=== PATIENT | female | born 1990 | race Caucasian/White ===

== ENCOUNTER 2021-01-07 07:04 | Outpatient (CLI) | payer OTHER, SELFPAY ==
[2021-01-07 07:50] LABS: Basophils Percent Auto 0.4 % (0.2-1.2); Eosinophils Absolute Auto 0.1 K/mm3 (0-0.3); Eosinophils Percent Auto 1.7 % (0-4.4); Hematocrit 41.9 % (37.0-47.0); Hemoglobin 14.2 g/dL (12.0-15.0); Immature Granulocyte Absolute 0.02 K/mm3 (0.00-0.031); Immature Granulocyte Percent A 0.3 % (0-0.5); Lymphocytes Absolute Auto 2.29 K/mm3 (0.9-3.2); Lymphocytes Percent Auto 31.5 % (18.3-44.2); Mean Corpuscular HGB Conc 33.9 g/dl (32-36); Mean Corpuscular Hemoglobin 31.3 pg (26-34); Mean Corpuscular Volume 92.3 fl (80-100); Mean Platelet Volume 9.8 fl (7.4-10.4); Monocytes Absolute Auto 0.5 K/mm3 (0.1-0.6); Monocytes Percent Auto 7.2 % (2.6-8.5); Neutrophils Absolute Auto 4.3 K/mm3 (1.3-6.7); Neutrophils Percent Auto 58.9 % (45.5-73.1); Platelet Count Result 229 k/mm3 (150-375); Red Blood Count 4.54 M/mm3 (4.2-5.4); Red Cell Distribution Width 11.3 % (11.5-14.5); White Blood Count 7.3 K/mm3 (4.5-10.0)
[2021-01-07 08:03] LABS: Alanine Aminotransferase 18 U/L (4-35); Albumin Level 4.5 g/dL (3.5-5.1); Alkaline Phosphatase 57 U/L (38-126); Anion Gap 11 mmol/L (8-16); Aspartate Amino Transferase 20 U/L (14-36); Bilirubin,Total 0.4 mg/dL (0.2-1.3); Blood Urea Nitrogen 23 mg/dL (7-17); Calcium 9.6 mg/dL (8.4-10.2); Carbon Dioxide 24 mmol/L (22-30); Chloride 103 mmol/L (98-107); Cholesterol 181 mg/dL (0-200); Estimated Glomerular Filt Rate > 60; Glucose 95 mg/dL (65-110); HDL Direct 60 mg/dL; Potassium 4.4 mmol/L (3.4-5.0); Sodium 138 mmol/L (137-145); Triglycerides 67 mg/dL (<150)
[2021-01-07 08:14] LABS: LDL Cholesterol Direct 93 mg/dL
== END 2021-01-07 07:05 | disposition home or self-care (01) ==
LOC: ANHLAB 07:10
PROVIDERS: PCP Nurse Practitioner Family; Visit Provider Nurse Practitioner Family
DX: Z00.00 Encounter for general adult medical examination without abnormal findings (principal); R51.9 Headache, unspecified; G89.29 Other chronic pain; F41.1 Generalized anxiety disorder; Z13.220 Encounter for screening for lipoid disorders
CPT/HCPCS: 36415; 80053; 80061; 84443; 85025

== ENCOUNTER 2021-11-13 15:47 | Outpatient (CLI) | payer OTHER, SELFPAY ==
--- NOTE | ~2021-11-13 | US_ITS ---
EXAMINATION: US OB <=14 wk fetus w TV DATE: 11/13/2021 16:54 INDICATION: Uncertain dates. TECHNIQUE: Real-time transabdominal and transvaginal pelvic ultrasound was performed. COMPARISON: None. FINDINGS: TRANSABDOMINAL ULTRASOUND: The uterus measures 10.1 x 5.2 x 7.0 cm. TRANSVAGINAL ULTRASOUND: There is an intrauterine gestational sac. A yolk sac is identified. The fet al crown rump length measures 1.8 cm, which correlates with an estimated gestational age of 8 weeks a nd 2 day(s) (+/-) 5 day(s). heart motion is identified measuring 165 beats per minute (bpm) by M-mode Doppler. The right ovary measures 4.5 x 2.1 x 1.7 cm. The left ovary measures 4.4 x 2.8 x 2.5 cm. There is no free fluid in the pelvis. IMPRESSION: 1. Single living intrauterine gestation with estimated date of delivery of 06/23/2022. Reviewed, dictated and finalized at location A. IMPRESSION: 1. Single living intrauterine gestation with estimated date of delivery of 06/14.
== END 2021-11-13 15:48 | disposition home or self-care (01) ==
PROVIDERS: PCP Nurse Practitioner Family; Visit Provider Advanced Practice Midwife
DX: Z36.9 Encounter for antenatal screening, unspecified (principal)
CPT/HCPCS: 76801; 76817

== ENCOUNTER 2021-12-16 15:37 | Outpatient (CLI) | payer OTHER, SELFPAY ==
[2021-12-16 16:26] LABS: Basophils Percent Auto 0.2 % (0.2-1.2); Eosinophils Absolute Auto 0.1 K/mm3 (0-0.3); Eosinophils Percent Auto 0.8 % (0-4.4); Hematocrit 36.6 % (37.0-47.0); Hemoglobin 12.3 g/dL (12.0-15.0); Immature Granulocyte Absolute 0.02 K/mm3 (0.00-0.031); Immature Granulocyte Percent A 0.2 % (0-0.5); Lymphocytes Absolute Auto 1.88 K/mm3 (0.9-3.2); Lymphocytes Percent Auto 21.2 % (18.3-44.2); Mean Corpuscular HGB Conc 33.6 g/dl (32-36); Mean Corpuscular Volume 92.2 fl (80-100); Mean Platelet Volume 10.3 fl (7.4-10.4); Monocytes Absolute Auto 0.6 K/mm3 (0.1-0.6); Monocytes Percent Auto 6.2 % (2.6-8.5); Neutrophils Absolute Auto 6.3 K/mm3 (1.3-6.7); Neutrophils Percent Auto 71.4 % (45.5-73.1); Platelet Count Result 200 k/mm3 (150-375); Red Blood Count 3.97 M/mm3 (4.2-5.4); Red Cell Distribution Width 11.9 % (11.5-14.5); White Blood Count 8.9 K/mm3 (4.5-10.0)
[2021-12-16 17:17] LABS: HIV 1/2 Ab P24 Ag Result Negative (Negative)
[2021-12-16 18:54] LABS: Hepatitis B Surface Antigen Negative (Negative); Rubella IgG Antibody 34.9 IU/ML
[2021-12-16 19:07] LABS: Hepatitis C Virus Antibody Negative (Negative)
[2021-12-16 19:38] LABS: Vitamin D 25 Hydroxy 35.8 ng/mL
[2021-12-17 06:50] LABS: Rapid Plasma Reagin Non-Reactive (NonReactive)
== END 2021-12-16 15:38 | disposition home or self-care (01) ==
PROVIDERS: PCP Nurse Practitioner Family; Visit Provider Advanced Practice Midwife
DX: Z36.9 Encounter for antenatal screening, unspecified (principal)
CPT/HCPCS: 36415; 82306; 82728; 83036; 85025; 86592; 86703; 86762; 86803; 86850; 86900; 86901; 87340; G0432

== ENCOUNTER 2022-02-01 15:48 | Outpatient (CLI) | payer OTHER, SELFPAY ==
--- NOTE | ~2022-02-01 | US_ITS ---
US OB /maternal detail DATE: 02/01/2022 16:59 INDICATION: anatomy screen TECHNIQUE: Real-time imaging and Doppler analysis COMPARISON: 11/13/2021 obstetrical ultrasound examination FINDINGS: Live thapa intrauterine gestation, is in longitudinal lie, vertex presentation. Anterio r placenta. Subjectively normal amount of amniotic fluid. Approximate 4.2 cm cervical length. No cervical funneling. Normal cerebral ventricles, cerebellum, cisterna magna and spine. facial structures including u pper lip appear normal. 4 chamber heart with normal aortic and pulmonary artery outflow tracts. heart rate of 151 bpm. The diaphragm is intact. Fluid is demonstrated stomach and urinary bladder. The kid neys are normal without hydronephrosis. Three-vessel umbilical cord with normal insertion at abdominal wall. male external genitalia. Biparietal diameter 4.71 cm; 20 weeks 2 days Head circumference 17.05 cm; 19 weeks 5 days Abdominal circumference 15.37 cm; 20 weeks 4 days Femur length 3.21 cm; 20 weeks 0 days Composite age by [place] formula is 20 weeks 1 day +/- 1 week 3 days with KIRILL of 06/20/2022, compared to 06/23/2022 on 11/13/2021. Estimated weight is 341 +/- 51 g. Estimated weight-GP: 75.6% Head circumference/abdominal circumference 1.11, within normal range of 1.07-1.25 Femur length/head circumference 18.82, within normal range of 16.67-19.87. IMPRESSION: Normal anatomy screen Reviewed, dictated and finalized at Location A. Reviewed, dictated and finalized at location A. 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
== END 2022-02-01 15:49 | disposition home or self-care (01) ==
LOC: ANHIMG 15:52
PROVIDERS: PCP Nurse Practitioner Family; Visit Provider Advanced Practice Midwife
DX: Z36.9 Encounter for antenatal screening, unspecified (principal); Z3A.00 Weeks of gestation of pregnancy not specified
CPT/HCPCS: 76805

== ENCOUNTER 2022-03-27 07:11 | Outpatient (CLI) | payer OTHER, SELFPAY ==
[2022-03-27 08:40] LABS: Hematocrit 34.3 % (37.0-47.0); Hemoglobin 11.4 g/dL (12.0-15.0)
[2022-03-27 08:51] LABS: Glucose 1 Hour PP 50gm Dose 147 mg/dL
[2022-03-27 09:31] LABS: HIV 1/2 Ab P24 Ag Result Negative (Negative)
[2022-03-27 09:54] LABS: Vitamin D 25 Hydroxy 64.4 ng/mL
== END 2022-03-27 07:12 | disposition home or self-care (01) ==
PROVIDERS: PCP Nurse Practitioner Family; Visit Provider Obstetrics & Gynecology Gynecology
DX: Z36.9 Encounter for antenatal screening, unspecified (principal)
CPT/HCPCS: 36415; 82306; 82947; 85014; 85018; 86703; G0432

== ENCOUNTER 2022-04-06 07:01 | Outpatient (CLI) | payer OTHER, SELFPAY ==
[2022-04-06 07:54] LABS: Glucose Fasting Gestational 80 mg/dL (>/=95)
[2022-04-06 09:40] LABS: Glucose 1 Hour Gest 176 mg/dL (>/=180)
[2022-04-06 10:40] LABS: Glucose 2 Hour Gest 171 mg/dL (>/= 155)
[2022-04-06 11:54] LABS: Glucose 3 Hour Gest 140 mg/dL (>/=140)
== END 2022-04-06 07:02 | disposition home or self-care (01) ==
LOC: ANHLAB 07:03
PROVIDERS: PCP Nurse Practitioner Family; Visit Provider Advanced Practice Midwife
DX: O99.891 Other specified diseases and conditions complicating pregnancy (principal)
CPT/HCPCS: 36415; 82951; 82952

== ENCOUNTER 2022-04-06 15:46 | Outpatient (CLI) | payer OTHER, SELFPAY ==
--- NOTE | ~2022-04-06 | US_ITS ---
EXAMINATION: US OB follow up DATE: 04/06/2022 16:29 INDICATION: Propanolol use with TECHNIQUE: Real-time transabdominal obstetric ultrasound. FINDINGS: Comparison to multiple prior studies sequentially, with oldest reviewed study dated 022. There is a single living fetus in vertex presentation. The placenta is anterior without placenta pre via. Amniotic fluid is subjectively normal. cardiac activity and movement is noted with a heart rate of 140 beats per minute. T he amniotic fluid volume is subjectively normal. The following biometric data were obtained: BPD: 75mm corresponds to gestational age 30 weeks 1 days. Head circumference: 273mm corresponds to gestational age 29 weeks 5 days. Abdominal circumference: 261mm corresponds to gestational age 30 weeks 2 days. Femur length: 56mm corresponds to gestational age 29 weeks 3 days. Estimated weight: 1477grams +/- 221grams, 76.2%.] IMPRESSION: 1. Single living intrauterine in vertex presentation with an estimated gestational age of 28 weeks 6 days by inititial ultrasound. Appropriate interval growth. 2. Normal placenta. Reviewed, dictated and finalized at location B. [employer]PER[employer] INTERN IMPRESSION: 1. Single living intrauterine in vertex presentation with an estimat ed gestational age of 28 weeks 6 days by inititial ultrasound. Appropriate int erval growth. 2. Normal placenta.
== END 2022-04-06 15:47 | disposition home or self-care (01) ==
PROVIDERS: PCP Nurse Practitioner Family; Visit Provider Advanced Practice Midwife
DX: O98.513 Other viral diseases complicating pregnancy, third trimester (principal); U07.1 COVID-19; Z3A.28 28 weeks gestation of pregnancy
CPT/HCPCS: 76816

== ENCOUNTER 2022-05-13 16:04 | Outpatient (CLI) | payer OTHER, SELFPAY ==
--- NOTE | ~2022-05-13 | US_ITS ---
EXAMINATION: US OB follow up DATE: 05/13/2022 18:00 INDICATION: Propranolol used with , growth assessment, third trimester TECHNIQUE: Real-time ultrasound of the pelvis was performed. The interpreting radiologist was not pre sent for the study. COMPARISON: 05/12/2022 FINDINGS: There is a single living fetus in vertex presentation. The placenta is anterior. card iac activity and movement are noted. heart rate is 141 beats per minute (bpm). The amniot ic fluid index is 11.5 cm which is normal. The cervical length is 2.9 cm. The following biometric data were obtained: Biparietal diameter (BPD): 8.7 cm; head circumference (HC): 31.7 cm; abdominal circumference (AC): 31 .2 cm; femur length (FL): 6.5 cm. These measurements are concordant. Estimated weight is 2523 g +/- 378 g, which correlates with the 65th percentile when 06/23/2022 is used as estimated date of delivery. As single measurements, these parameters are each equal to the following estimated gestational ages w ith ranges of +/- 2 standard deviations: BPD: 35 weeks 1 days +/- 3 weeks 1 days. HC: 35 weeks 5 days +/- 3 weeks 0 days. AC: 35 weeks 1 days +/- 3 weeks 0 days. FL: 33 weeks 5 days +/- 3 weeks 0 days. estimated gestational age based solely on measurements from this exam is 35 weeks 0 days +/- 2 weeks 3 days. IMPRESSION: 1. Single living fetus in vertex presentation. 2. Estimated weight is 2523 g +/- 378 g, which correlates with the 65th percentile when 06/24/19 23 is used as estimated date of delivery. Reviewed, dictated and finalized at location F. IMPRESSION: 1. Single living fetus in vertex presentation. 2. Estimated weight is 2523 g +/- 378 g, which correlates with the 65th p ercentile when 06/23/2022 is used as estimated date of delivery.
== END 2022-05-13 16:05 | disposition home or self-care (01) ==
LOC: ANHIMG 16:07
PROVIDERS: PCP Nurse Practitioner Family; Visit Provider Advanced Practice Midwife
DX: O24.414 Gestational diabetes mellitus in pregnancy, insulin controlled (principal); Z79.4 Long term (current) use of insulin
CPT/HCPCS: 76816

== ENCOUNTER 2022-05-25 17:05 | Outpatient (CLI) | payer OTHER, SELFPAY ==
[2022-05-25] VITALS (7 sets, daily range): BP systolic 123–133; BP diastolic 77–94; PULSE 83–117
--- NOTE | ~2022-05-25 | US_ITS ---
EXAMINATION: US OB limited w BPP DATE: 05/25/2022 18:06 INDICATION: -induced hypertension. Evaluate ALCIDES and BPP. TECHNIQUE: Real-time ultrasound of the pelvis was performed. COMPARISON: 05/13/2022. FINDINGS: There is a single living fetus in vertex presentation, longitudinal lie. The placenta is anterior. F etal heart rate is 136 beats per minute (bpm). The amniotic fluid index is 15.2 which is normal. Cerv ix not well visualized. macro biometrics Biophysical profile performed by the technologist: breathing (30 sec sustained breathing in 30 minutes): 2 out of 2 movement (3 gross body movements in 30 minutes: 2 out of 2 tone (one episode of ykrnmen-ycpxrpdrz-lyhylae limb movement): 2 out of 2 Amniotic fluid pocket (2 cm): 2 out of 2 Total score: 8 out of 8 IMPRESSION: 1. Single living fetus in vertex presentation. 2. Normal appearing, anterior placenta, which appears to be well clear of the cervix. 3. Biophysical profile 8 out of 8. 4. Normal ALCIDES. Reviewed, dictated and finalized at location K.
[2022-05-25 18:07] LABS: Basophils Percent Auto 0.2 % (0.2-1.2); Eosinophils Absolute Auto 0.1 K/mm3 (0-0.3); Eosinophils Percent Auto 0.9 % (0-4.4); Hematocrit 33.1 % (37.0-47.0); Immature Granulocyte Absolute 0.04 K/mm3 (0.00-0.031); Immature Granulocyte Percent A 0.4 % (0-0.5); Lymphocytes Absolute Auto 1.77 K/mm3 (0.9-3.2); Lymphocytes Percent Auto 18.1 % (18.3-44.2); Mean Corpuscular HGB Conc 33.2 g/dl (32-36); Mean Corpuscular Hemoglobin 30.1 pg (26-34); Mean Corpuscular Volume 90.7 fl (80-100); Mean Platelet Volume 10.6 fl (7.4-10.4); Monocytes Absolute Auto 0.8 K/mm3 (0.1-0.6); Monocytes Percent Auto 7.8 % (2.6-8.5); Neutrophils Absolute Auto 7.1 K/mm3 (1.3-6.7); Neutrophils Percent Auto 72.6 % (45.5-73.1); Platelet Count Result 173 k/mm3 (150-375); Red Blood Count 3.65 M/mm3 (4.2-5.4); Red Cell Distribution Width 11.8 % (11.5-14.5); White Blood Count 9.8 K/mm3 (4.5-10.0)
[2022-05-25 18:08] LABS: Appearance Urine Cloudy (Clear); Bacteria Urine 1+ /hpf; Bilirubin Urine Negative (Negative); Blood Urine Negative (Negative); Color Urine Yellow (Yellow); Glucose Urine UA Negative (Negative); Ketones Urine Negative (Negative); Leukocyte Esterase Ur 1+ LEU/UL (NEGATIVE); Nitrate Urine Negative (Negative); Non Pathogenic Casts 0-2; Protein Urine Trace mg/dL (Negative); RBC Urine 0-2 /hpf (0-2); Specific Grav Ur 1.024 (1.001-1.035); Squamous Epithelial Cell Urine Few /hpf (Few); pH Urine 6.5 (5.0-9.0)
[2022-05-25 18:09] LABS: Add Urine Microscopic? YES
[2022-05-25 18:31] LABS: Alanine Aminotransferase 17 U/L (6-35); Albumin Level 3.4 g/dL (3.5-5.1); Alkaline Phosphatase 209 U/L (38-126); Anion Gap 5 mmol/L (8-16); Aspartate Amino Transferase 26 U/L (14-36); Bilirubin,Total 0.4 mg/dL (0.2-1.3); Blood Urea Nitrogen 9 mg/dL (7-17); Carbon Dioxide 23 mmol/L (22-30); Chloride 106 mmol/L (98-107); Estimated Glomerular Filt Rate > 60; Glucose 73 mg/dL (65-110); Sodium 134 mmol/L (137-145); Uric Acid 3.7 mg/dL (2.5-7.5)
[2022-05-25 18:52] LABS: Creatinine Urine 121.2 mg/dL; Total Protein Urine Random 8 mg/dL; Ur Ttl Prot Creatinine Ratio 0.07 mg/mg (0-0.20)
--- NOTE | 2022-05-26 09:44 | PM.OBTRLD ---
OB - Triage/Final Diagnosis Visit Information Reason for evaluation: other (NRNST in office. BPP 8/8 with normal ALCIDES and reactive tracing in triage. BPs WNL and preeclampsia labs neg. ) Comments/Additional reasons for admission: I have assessed the risk for this patient, Nini Bhardwaj, and determined that she would benefit from observation care. Evaluation Laboratory results: Laboratory Tests 05/25/22 05/25/22 05/25/22 17:45 17:45 17:45 WBC 9.8 RBC 3.65 L Hgb 11.0 L Hct 33.1 L MCV 90.7 MCH 30.1 MCHC 33.2 RDW 11.8 Plt Count 173 MPV 10.6 H Immature Gran % (Auto) 0.4 Neut % (Auto) 72.6 Lymph % (Auto) 18.1 L [place] % (Auto) 7.8 Eos % (Auto) 0.9 Baso % (Auto) 0.2 Lymph # (Auto) 1.77 [place] # (Auto) 0.8 H Eos # (Auto) 0.1 Baso # (Auto) 0.0 Abs Immat Gran (auto) 0.04 H Absolute Neuts (auto) 7.1 H Absolute Nucleated RBC 0.0 Nucleated RBC % 0.0 Sodium Potassium Chloride Carbon Dioxide Anion Gap BUN Creatinine Estim Creat Clear Calc Estimated GFR Glucose Uric Acid Calcium Total Bilirubin AST ALT Alkaline Phosphatase Total Protein Albumin Urine Color Yellow Urine Appearance Cloudy H Urine pH 6.5 Ur Specific [place] 1.024 Urine Protein Trace Urine Glucose (UA) Negative Urine Ketones Negative Ur Blood (Man) Negative Urine Nitrate Negative Urine Bilirubin Negative Urine Urobilinogen 1.0 Ur Leukocyte Esterase 1+ H Urine RBC 0-2 Urine WBC 11-20 H Ur Squamous Epith Cells Few Urine Bacteria 1+ H Urine Casts 0-2 U Random Total Protein 8 Urine Creatinine 121.2 Protein/Creat Ratio 2 0.07 05/25/22 17:45 WBC RBC Hgb Hct MCV MCH MCHC RDW Plt Count MPV Immature Gran % (Auto) Neut % (Auto) Lymph % (Auto) [place] % (Auto) Eos % (Auto) Baso % (Auto) Lymph # (Auto) [place] # (Auto) Eos # (Auto) Baso # (Auto) Abs Immat Gran (auto) Absolute Neuts (auto) Absolute Nucleated RBC Nucleated RBC % Sodium 134 L Potassium 4.0 Chloride 106 Carbon Dioxide 23 Anion Gap 5 L BUN 9 D Creatinine 0.40 L Estim Creat Clear Calc Not Reportable Estimated GFR > 60 Glucose 73 Uric Acid 3.7 Calcium 9.0 Total Bilirubin 0.4 AST 26 ALT 17 Alkaline Phosphatase 209 H Total Protein 6.0 L Albumin 3.4 L Urine Color Urine Appearance Urine pH Ur Specific [place] Urine Protein Urine Glucose (UA) Urine Ketones Ur Blood (Man) Urine Nitrate Urine Bilirubin Urine Urobilinogen Ur Leukocyte Esterase Urine RBC Urine WBC Ur Squamous Epith Cells Urine Bacteria Urine Casts U Random Total Protein Urine Creatinine Protein/Creat Ratio 2 Vital signs: Vital Signs - 24 hr 05/25/22 17:14 05/25/22 17:15 05/25/22 17:30 Pulse Rate 101 H 117 H 83 Blood Pressure 133/94 H 129/81 123/82 05/25/22 18:15 05/25/22 18:30 05/25/22 18:45 Pulse Rate 83 83 89 Blood Pressure 132/86 126/77 129/78 05/25/22 18:05 Pulse Rate 83 Blood Pressure
== END 2022-05-25 18:55 | disposition home or self-care (01) ==
LOC: ANHOBOP 17:08 → ANHOBPP 17:09
PROVIDERS: PCP Nurse Practitioner Family; Visit Provider Obstetrics & Gynecology Gynecology
DX: O13.9 Gestational [pregnancy-induced] hypertension without significant proteinuria, unspecified trimester (principal); Z3A.00 Weeks of gestation of pregnancy not specified
CPT/HCPCS: 36415; 59025; 76815; 76819; 80053; 81001; 82570; 84156; 84550; 85025; 87086; 99199

== ENCOUNTER 2022-06-08 16:46 | Outpatient (CLI) | payer OTHER, SELFPAY ==
[2022-06-08 17:30] LABS: Hematocrit 33.7 % (37.0-47.0); Hemoglobin 10.7 g/dL (12.0-15.0); Mean Corpuscular HGB Conc 31.8 g/dl (32-36); Mean Corpuscular Hemoglobin 29.1 pg (26-34); Mean Corpuscular Volume 91.6 fl (80-100); Mean Platelet Volume 10.9 fl (7.4-10.4); Platelet Count Result 164 k/mm3 (150-375); Red Blood Count 3.68 M/mm3 (4.2-5.4); White Blood Count 9.7 K/mm3 (4.5-10.0)
[2022-06-08 17:50] LABS: Alanine Aminotransferase 18 U/L (6-35); Albumin Level 3.4 g/dL (3.5-5.1); Alkaline Phosphatase 231 U/L (38-126); Anion Gap 7 mmol/L (8-16); Aspartate Amino Transferase 25 U/L (14-36); Bilirubin,Total 0.4 mg/dL (0.2-1.3); Blood Urea Nitrogen 11 mg/dL (7-17); Carbon Dioxide 22 mmol/L (22-30); Chloride 104 mmol/L (98-107); Estimated Glomerular Filt Rate > 60; Glucose 84 mg/dL (65-110); Sodium 133 mmol/L (137-145); Uric Acid 4.5 mg/dL (2.5-7.5)
== END 2022-06-08 16:47 | disposition home or self-care (01) ==
PROVIDERS: PCP Nurse Practitioner Family; Visit Provider Obstetrics & Gynecology Gynecology
DX: O99.891 Other specified diseases and conditions complicating pregnancy (principal)
CPT/HCPCS: 36415; 80053; 84550; 85027

== ENCOUNTER 2022-06-11 11:30 | Inpatient (IN) | payer OTHER, SELFPAY ==
[2022-06-11] VITALS (146 sets, daily range): BP systolic 102–146; BP diastolic 59–88; PULSE 67–108; RESP 16; TEMP 37.1–37.4; O2SAT 78–100; BMI 29.2
--- NOTE | ~2022-06-11 | US_ITS ---
EXAMINATION: US OB limited w BPP DATE: 06/11/2022 14:03 INDICATION: cardiac decelerations. Assess biophysical profile and amniotic fluid index. TECHNIQUE: Real-time pelvic ultrasound was performed. The interpreting radiologist was not present fo r the study. COMPARISON: None. FINDINGS: There is a single living fetus in vertex presentation. The placenta is anterior. heart rate is 159 beats per minute (bpm). Normal amniotic fluid index of 10.7 cm (5th%-95%: 7.3-23.9 cm at 38 week s estimated gestational age) Biophysical profile performed by the technologist: breathing (30 sec sustained breathing in 30 minutes): 0 out of 2 movement (3 gross body movements in 30 minutes): 2 out of 2 tone (one episode of qzgrzyf-nsjxmqyot-etizqzy limb movement): 2 out of 2 Amniotic fluid pocket (2 cm): 2 out of 2 Total score: 6 out of 8 IMPRESSION: 1. Single living fetus in vertex presentation with heart rate of 159 bpm. 2. Biophysical profile 6 out of 8. No points given for 30 seconds of observed sustained breath ing of the 30 minute course of observation. 3. Normal amniotic fluid index of 10.7 cm. Reviewed, dictated and finalized at location A. IMPRESSION: 1. Single living fetus in vertex presentation with heart rate of 159 bpm. 2. Biophysical profile 6 out of 8. No points given for 30 seconds of observed sustained breathing of the 30 minute course of observation. 3. Normal amniotic fluid index of 10.7 cm.
[2022-06-11] MEDS: DINOPROSTONE 10 MG VAG INSERT VAGINAL (14:25)
[2022-06-11 14:54] LABS: Basophils Percent Auto 0.3 % (0.2-1.2); Eosinophils Absolute Auto 0.1 K/mm3 (0-0.3); Eosinophils Percent Auto 0.7 % (0-4.4); Hematocrit 32.5 % (37.0-47.0); Hemoglobin 10.6 g/dL (12.0-15.0); Immature Granulocyte Absolute 0.05 K/mm3 (0.00-0.031); Immature Granulocyte Percent A 0.5 % (0-0.5); Lymphocytes Absolute Auto 1.82 K/mm3 (0.9-3.2); Lymphocytes Percent Auto 17.8 % (18.3-44.2); Mean Corpuscular HGB Conc 32.6 g/dl (32-36); Mean Corpuscular Hemoglobin 29.2 pg (26-34); Mean Corpuscular Volume 89.5 fl (80-100); Mean Platelet Volume 11.1 fl (7.4-10.4); Monocytes Absolute Auto 0.7 K/mm3 (0.1-0.6); Monocytes Percent Auto 7.2 % (2.6-8.5); Neutrophils Absolute Auto 7.5 K/mm3 (1.3-6.7); Neutrophils Percent Auto 73.5 % (45.5-73.1); Platelet Count Result 154 k/mm3 (150-375); Red Blood Count 3.63 M/mm3 (4.2-5.4); Red Cell Distribution Width 12.1 % (11.5-14.5); White Blood Count 10.2 K/mm3 (4.5-10.0)
--- NOTE | 2022-06-11 16:23 | LDADM ---
This patient, Nini Bhardwaj, was admitted to Labor/Delivery/Recovery 108 on 06/11/22 at 11:30. Plans for labor, pain management and were discussed with patient. Patient/family oriented to hospital policies and general routines including ID bracelet, bed and alarms, visiting hours, pain management, procedures, bathroom and other care routines, personal items, smoking policy, room service/diet and guest tray routines, infant security routines, and visiting hours. Patient/Family are encouraged to report perceived risks to care and to ask questions if they do not understand what they are told or what they should do. See OBIX for further documentation.
--- NOTE | 2022-06-11 17:02 | WPDANESEPP ---
Anes - Eval Pre Procedure Procedure: Labor epidural Date/Time: 06/11/22 17:02 Surgeon: Dhara Preop Diagnosis: Abdominal pain with contractions Pre Op Diagnosis: Induction of Labor Patient Data Age: 32 Gender: F Height: 1.68 m Weight: 82 kg Last Vital Signs Pulse 101 H 06/11/22 17:00 BP 125/86 06/11/22 17:00 Pulse Ox 100 06/11/22 17:00 O2 Del Method Room Air 06/11/22 13:00 Allergies Allergy/AdvReac Type Severity Reaction Status Date / Time No Known Allergies Allergy Verified 05/26/22 15:41 Home Medications Medication Instructions Recorded Confirmed Type aspirin 81 mg capsule 81 mg PO DAILY 05/26/22 05/26/22 History cholecalciferol (vitamin D3) 50 50 mcg PO DAILY 05/26/22 05/26/22 History mcg (2,000 unit) capsule (Vitamin D3) magnesium 250 mg tablet 250 mg PO DAILY 05/26/22 05/26/22 History vit no.95-ferrous 1 tablet PO DAILY 05/26/22 05/26/22 History fumarate 28 mg-folic acid 800 mcg tablet () sertraline 100 mg tablet 100 mg PO DAILY 05/26/22 05/26/22 History insulin NPH isoph U-100 human 100 14 unit subcut HS 06/11/22 06/11/22 History unit/mL subcutaneous suspension (Humulin N NPH U-100 Insulin (isophane susp)) Laboratory Tests 06/11/22 14:34 WBC 10.2 H K/mm3 (4.5-10.0) RBC 3.63 L M/mm3 (4.2-5.4) Hgb 10.6 L g/dL (12.0-15.0) Hct 32.5 L % (37.0-47.0) MCV 89.5 fl (80-100) MCH 29.2 pg (26-34) MCHC 32.6 g/dl (32-36) RDW 12.1 % (11.5-14.5) Plt Count 154 k/mm3 (150-375) MPV 11.1 H fl (7.4-10.4) Immature Gran % (Auto) 0.5 % (0-0.5) Neut % (Auto) 73.5 H % (45.5-73.1) Lymph % (Auto) 17.8 L % (18.3-44.2) [place] % (Auto) 7.2 % (2.6-8.5) Eos % (Auto) 0.7 % (0-4.4) Baso % (Auto) 0.3 % (0.2-1.2) Lymph # (Auto) 1.82 K/mm3 (0.9-3.2) [place] # (Auto) 0.7 H K/mm3 (0.1-0.6) Eos # (Auto) 0.1 K/mm3 (0-0.3) Baso # (Auto) 0.0 K/mm3 (0.0-0.1) Abs Immat Gran (auto) 0.05 H K/mm3 (0.00-0.031) Absolute Neuts (auto) 7.5 H K/mm3 (1.3-6.7) Absolute Nucleated RBC 0.0 K/mm3 (0.0-0.012) Nucleated RBC % 0.0 % (0.0-0.2) RPR Pending Blood Type AB Positive Antibody Screen Negative : gestational age HCG: positive Patient hx anesthesia problems: none Family hx anesthesia problems: none Results Review: All pre-operative results and documents have been reviewed as part of the pre-operative evaluation. [facility] Past Medical History Medical History Anxiety Migraines Overweight (BMI 25.0-29.9) and not yet delivered Family History Family History Other No pertinent family history Social History Social History Smoking status: Never smoker Substance use: never Lack of Transportation: No Lack of Food: Never True Current Housing: I Have Housing Concerned About Future Housing: No Difficulty Paying Gas/Electric Bills: No Difficulty Paying for Meds: No Currently Unemployed: No Education: Bachelor's Degree Difficulty w/ Childcare or Family Care: No Spiritual care concerns: No Exam Day of Procedure 06/11/22 17:02 Patient weight: overweight
[2022-06-11] MEDS: fentaNYL CITRATE INJ (*CRX) 100 MCG/2 ML VIAL IV PUSH ×2 (18:33→19:59)
[2022-06-11 20:33] LABS: Glucose Point of Care 83 mg/dl (65-105)
[2022-06-11] MEDS: INSULIN HUMAN NPH (*BKC) 100 UNITS/ML 14 UNITS SUB-Q (21:04)
[2022-06-11] MEDS: LACTATED RINGERS 1,000 ML 125 ML IV CONT ×2 (21:05→21:56)
[2022-06-11] MEDS: ONDANSETRON INJ 4 MG/2 ML VIAL IV PUSH (21:34)
[2022-06-12] VITALS (185 sets, daily range): BP systolic 103–151; BP diastolic 56–91; PULSE 25–158; RESP 16; TEMP 36.6–37.7; O2SAT 82–100
[2022-06-12 00:54] LABS: Glucose Point of Care 75 mg/dl (65-105)
[2022-06-12] MEDS: CALCIUM CARBONATE (TUMS) 500 MG (200 MG ELEMENTAL) PO (01:12)
[2022-06-12] MEDS: OXYTOCIN 30 UNITS/NS 500 ML 30 UNITS/500 ML BAG 6 UNITS IV CONT (02:34)
[2022-06-12 04:42] LABS: Glucose Point of Care 76 mg/dl (65-105)
[2022-06-12 06:50] LABS: Glucose Point of Care 70 mg/dl (65-105)
[2022-06-12 09:00] LABS: Glucose Point of Care 64 mg/dl (65-105)
--- NOTE | 2022-06-12 10:50 | WPDHPUPDATE1 ---
History and Physical Update Update Date/Time: 06/12/22 10:50 History and Physical has been reviewed, including an updated exam of the patient. There are NO changes in the patient's condition. Risks, benefits, and alternatives have been discussed and questions answered. Patient agrees to proceed with procedure.
--- NOTE | 2022-06-12 10:50 | WPDOBADMIT ---
Obstetrics - Admit Note Admission Note: record reviewed. No pertinent additions to the history and/or any subsequent changes in the physical findings that are not consistent with the expected course of the were found. Additions to the history and/or subsequent changes in the physical findings follow. None.
--- NOTE | 2022-06-12 12:11 | PM.OBPRVD ---
OB - Delivery Note Procedure Events: Gestational Diabetes and Other (Variable decelerations) Intrapartal Events: Decelerations Induction method: Per Misoprostol Protocol Delivery augmentation: Rupture of Membranes and Pitocin Delivery monitor: External FHT and External Uterine Route of delivery: Episiotomy description: None Laceration Description: Perineal - 2nd Degree Delivery repair: chromic Specimen: Yes Quantitative Blood Loss (ml): 300 Anesthesia type: Epidural Disposition: Floor Complications: none Narrative: patient prepped draped usual manner for this procedure. Maternal expulsive efforts delivered vertex over intact perineum. Nuchal cord x5 was noted and reduced. Rest of baby delivered without difficulty. Cord clamped and cut and placenta delivered spontaneously. Uterus was well contracted with minimal bleeding. Second-degree laceration was noted and approximating 2-0 chromic in a running interlocking manner to approximate the vaginal tissue deep to tissue and then a subcuticular layer. At this point the procedure was considered terminated with immediate postop condition of mother excellent and baby being evaluated by the pediatric team, though he was improving and doing well. Baby Date of : 06/12/22 Weeks of gestation at delivery: 38 Infant gender: Male Weight (pounds): 6 Weight (ounces): 11 presentation: vertex position: Right Occiput Anterior Placenta delivery description: Spontaneous Cord Vessel Description: 3 Vessels, Nuchal Cord ( X5) and Reduced Narrative: [id number] of life baby is doing well, scores are pending currently.
[2022-06-12] MEDS: OXYTOCIN 30 UNITS/NS 500 ML 30 UNITS/500 ML BAG 125 UNITS IV CONT (12:45)
[2022-06-12] MEDS: WITCH HAZEL 40 PADS 1 PAD TOPICAL (14:45)
[2022-06-12] MEDS: BENZOCAINE 20% AER SPR (*SP) 56 GM CAN 1 SPRAY TOPICAL (14:45)
[2022-06-12] MEDS: IBUPROFEN 600 MG TABLET PO (22:52)
[2022-06-13 05:02] LABS: Hematocrit 29.7 % (37.0-47.0); Hemoglobin 9.7 g/dL (12.0-15.0)
--- NOTE | 2022-06-13 07:46 | PM.OBPNVD ---
OB - PN: Subj Subjective Date/time seen: 06/13/22 07:46 S: Pain well controlled, diet ambulation voiding without difficulty. Bottle feeding without issue. O: Vital signs stable afebrile Abdomen positive bowel sounds soft appropriately tender Labs: Noted A: 1. Status post vaginal delivery with second-degree laceration repair P: 1. Routine postoperative care 2. Baby to be circumcised prior to discharge OB - PN: Obj Data Labs 06/13/22 04:47 Labs: Laboratory Results - last 24 hr 06/12/22 06/13/22 08:57 04:47 Hgb 9.7 L Hct 29.7 L POC Capillary Glucose 64 L OB - PN A/P Time Spent With Patient Time: Total time spent is greater than 50% in coordination of care (as documented) at patient's floor/unit and/or counseling patient:
[2022-06-13 09:00] VITALS: BP 125/90; PULSE 73; RESP 18; TEMP 36.3
[2022-06-13] MEDS: POLYSACCHARIDE IRON COMPLEX 150 MG CAPSULE PO ×2 (09:49→17:09)
[2022-06-13] MEDS: IBUPROFEN 600 MG TABLET PO ×2 (09:50→17:09)
[2022-06-13] MEDS: DOCUSATE SODIUM 100 MG CAPSULE PO ×2 (09:50→17:09)
[2022-06-13 20:10] VITALS: BP 147/95; PULSE 79; RESP 16; TEMP 37; O2SAT 98
[2022-06-14] MEDS: IBUPROFEN 600 MG TABLET PO (05:49)
[2022-06-14 07:29] LABS: Rapid Plasma Reagin Non-Reactive (NonReactive)
[2022-06-14 07:45] VITALS: BP 139/84; PULSE 68; RESP 16; TEMP 36.6; O2SAT 100
[2022-06-14 08:00] VITALS: PULSE 68; RESP 16; O2SAT 100
--- NOTE | 2022-06-14 10:00 | P.PNOB_ITS ---
OB - PN: Subj Subjective Date/time seen: 06/14/22 10:00 Patient comments: no complaints and pain well controlled baby status: doing well and bottle feeding well OB - PN: Obj Data Labs 06/13/22 04:47 Labs: Laboratory Results - last 24 hr 06/11/22 14:34 RPR Non-reactive OB - PN A/P Plan day: 2 Plan: routine care, discharge home, follow up 6 weeks and other (p lans to restart micronor at week 3) Time Spent With Patient Time: Total time spent is greater than 50% in coordination of care (as documented) at patient's floor/unit and/or counseling patient: Exam : Bimanual exam- vagina & uterus: other (Uterus firm, nt @U)
--- NOTE | 2022-06-14 10:01 | PM.OBDSVD ---
DS: Admitting Diagnosis Discharge Date 06/14/22 Admitting Diagnosis IUP 38 4/7 variable and prolonged deceleration DS: Discharge Diagnosis Discharge Diagnosis Plan nuchal cord x 5 OB - DS: Summary OB Procedures : NST (for GDMA2 and COVID in ) and Ultrasound OB Procedures Intrapartum: Spontaneous Vag Delivery OB Procedures: : None Peripartum Data Infant Delivery Method: Natural Vaginal (per Dr. Pitt) Laceration Description: Perineal - 2nd Degree complications: none Status at Discharge Functional status at discharge: independent ambulation Overall status at discharge: patient is progressing back to baseline Time Spent with Patient Time attestation: Total time spent providing and/or coordinating discharge services: DS: Data Data Completed and Pending Pending studies at discharge: Pending at discharge 06/12/22 13:07 Surgical [PTH] Routine Labs on day of discharge: Labs from last 24 hours 06/11/22 14:34 RPR Non-reactive Discharge Plan Discharge Attending physician on discharge: Olivia Jules Discharging Clinician: Olivia Jules Anticipated Discharge Date/Time: 06/14/22 10:03 Patient Disposition: Home, Self-Care Activity: may shower, as tolerated and pelvic rest Diet: regular Patient Instructions: Antibiotic Form Stand Alone Forms: General Discharge Information Follow-up/Referrals: Olivia Jules MD [Physician] - 6 Weeks Discharge Medications: New norethindrone (contraceptive) 0.35 mg tablet 0.35 mg PO DAILY Qty: 84 3RF Continued sertraline 100 mg Tablet 100 mg PO DAILY cholecalciferol (vitamin D3) [Vitamin D3] 50 mcg (2,000 unit) Capsule 50 mcg PO DAILY PNV cmb#95-ferrous fumarate-FA [] 28 mg iron- 800 mcg Tablet 1 tablet PO DAILY Discontinued magnesium 250 mg Tablet 250 mg PO DAILY aspirin 81 mg Capsule 81 mg PO DAILY Humulin N NPH U-100 Insulin 100 unit/mL suspension 14 unit SUBCUT HS Date of admission: 06/11/22 11:30 Primary Care Provider: Irene Granados Admitting Provider: Olivia Jules Attending physician on admission: Olivia Jules Condition: Stable
--- NOTE | 2022-06-14 14:56 | PC.NURSE ---
0830 Pt given Tylenol 650 mg., Colace, Iron, Which Oliva Pads, Dermaplast. Pt discharged from computer, unable to chart.
[2022-06-16 10:05] VITALS: BP 151/96; PULSE 81; RESP 18; TEMP 37.2; O2SAT 100
== END 2022-06-14 13:15 | disposition home or self-care (01) | DRG 807 ==
LOC: ANHLDR 06-12 11:35 → ANHOB2 06-12 17:57
PROVIDERS: Admitting Provider Obstetrics & Gynecology; PCP Advanced Practice Midwife; Visit Provider Obstetrics & Gynecology Gynecology
DX: O24.429 Gestational diabetes mellitus in childbirth, unspecified control (principal); Z37.0 Single live birth; Z3A.38 38 weeks gestation of pregnancy; O36.8330 Maternal care for abnormalities of the fetal heart rate or rhythm, third trimester, not applicable or unspecified; O70.1 Second degree perineal laceration during delivery; O69.81X0 Labor and delivery complicated by cord around neck, without compression, not applicable or unspecified
CPT/HCPCS: 36415; 76815; 76819; 82948; 85014; 85018; 85025; 86592; 86850; 86900; 86901; 88307; A9270; J1815; J2405; J2590; J2795; J3010; J7120

== ENCOUNTER 2022-06-11 11:30 | Outpatient (RCR) | payer OTHER, SELFPAY ==
[2022-05-11 16:34] VITALS: BP 123/77; PULSE 85
[2022-05-12 16:07] VITALS: BP 129/81; PULSE 96
--- NOTE | ~2022-06-11 | US_ITS ---
EXAMINATION: US OB limited w BPP DATE: 05/12/2022 16:14 INDICATION: Decelerations during the amniotic fluid index assessment during third trimester TECHNIQUE: Real-time pelvic ultrasound was performed. The interpreting radiologist was not present fo r the study. COMPARISON: None. FINDINGS: There is a single living fetus in vertex presentation. The placenta is anterior. heart rate is 142 beats per minute (bpm). The amniotic fluid index is 14.5 cm which is normal (normal range: 8.1 cm to 25 cm). Biophysical profile performed by the technologist: breathing (30 sec sustained breathing in 30 minutes): 2 out of 2 movement (3 gross body movements in 30 minutes): 2 out of 2 tone (one episode of iunnctq-pkpgwimta-auluvnq limb movement): 2 out of 2 Amniotic fluid pocket (2 cm): 2 out of 2 Total score: 8 out of 8 IMPRESSION: 1. Single living fetus in vertex presentation. 2. Biophysical profile 8 out of 8. 3. Normal amniotic fluid index. Reviewed, dictated and finalized at location F.
== END 2022-08-09 23:59 | disposition home or self-care (01) ==
LOC: ANHOBOP 11:30
PROVIDERS: PCP Nurse Practitioner Family; Visit Provider Advanced Practice Midwife
DX: O24.419 Gestational diabetes mellitus in pregnancy, unspecified control (principal); Z3A.33 33 weeks gestation of pregnancy; Z3A.34 34 weeks gestation of pregnancy
CPT/HCPCS: 59025; 76815; 76819